=== PATIENT | female | born 1990 | race Caucasian/White ===

== ENCOUNTER 2020-06-27 07:21 | Inpatient (IN) | payer OTHER ==
[~2020-06-27] VITALS: Ht 167.6 cm; Wt 56.7 kg
[2020-06-27] MEDS: SODIUM CHLORIDE 0.9% 1,000 ML IV ONE ×2 (07:30→12:45)
[2020-06-27 09:06] LABS: EOSINOPHILS % 1.8 % (0.0-5.0); HEMATOCRIT. 28.7 % (36.0-48.0); HEMOGLOBIN. 9.8 g/dL (12.0-16.0); LYMPHOCYTES % 18.9 % (20.0-50.0); MEAN CORPUSCULAR HEMOGLOBIN 30.8 pg (28.0-32.0); MEAN CORPUSCULAR VOLUME 90.4 fL (81.0-99.0); MONOCYTES % 6.6 % (2.0-8.0); NEUTROPHILS % 71.7 % (40.0-76.0); PLATELET 178 x1000/uL (130-400); RED BLOOD CELL COUNT 3.17 mill/uL (4.2-5.4); RED CELL DISTRIBUTION WIDTH 11.8 % (11.6-14.6)
[2020-06-27 09:12] LABS: CHLORIDE 111 mEq/L (98-107)
[2020-06-27 14:45] VITALS: BP 104/62
[2020-06-27 16:00] VITALS: BP 104/62
[2020-06-27] MEDS ORDERED: LACTATED RINGERS 1,000 ML IV SCH (16:00)
[2020-06-27] MEDS ORDERED: FENTANYL CITRATE/PF 50MCG/ML 2ML VIAL ONE (16:47)
[2020-06-27] MEDS ORDERED: PROPOFOL 200MG/20ML VIAL IV ONE ×2 (16:47→17:48)
[2020-06-27] MEDS ORDERED: MIDAZOLAM HCL 2 MG/2 ML VIAL ONE ×2 (16:47→17:30)
[2020-06-27] MEDS ORDERED: LIDOCAINE HCL 1% 20ML VIAL (Pyxis) INJ ONE (16:47)
[2020-06-27] MEDS ORDERED: ONDANSETRON HCL 4MG/2ML INJ ONE (17:28)
[2020-06-27] MEDS ORDERED: EPHEDRINE SULFATE 50MG/ML VIAL ONE (17:42)
[2020-06-27] MEDS ORDERED: FENTANYL CITRATE/PF 50MCG/ML 2ML VIAL IV PRN (18:00)
[2020-06-27] MEDS ORDERED: CEPH-569 MT (18:55)
[2020-06-27] MEDS ORDERED: IBUP-2030 MT (18:55)
[2020-06-27 20:00] VITALS: BP 100/61
[2020-06-27 20:10] VITALS: BP 100/61
[2020-06-27 20:26] VITALS: BP 100/61
[2020-06-27] MEDS: IBUPROFEN 800MG TABLET PO NR (20:26)
== END 2020-06-27 21:15 | disposition home or self-care (01) | DRG 769 ==
LOC: ER 07:37 → 6EST 13:31 → ENRESERV 14:03
PROVIDERS: ADMIT Obstetrics & Gynecology; ATTEND Obstetrics & Gynecology
PROC: 10D17ZZ Extraction of Products of Conception, Retained, Via Natural or Artificial Opening (ICD-10-PCS; principal; 2020-06-27)
DX: O72.2 Delayed and secondary postpartum hemorrhage (principal); I95.9 Hypotension, unspecified; R00.0 Tachycardia, unspecified; O90.89 Other complications of the puerperium, not elsewhere classified; Z20.822 Contact with and (suspected) exposure to COVID-19; Z88.0 Allergy status to penicillin
CPT/HCPCS: 36415; 76830; 76856; 80053; 84702; 85025; 86850; 86900; 87426; 88305; 93005; 99285; J2250; J2405; J2704; J3010; J3490; J7030

== ENCOUNTER 2025-04-12 02:05 | Emergency (ER) | payer OTHER ==
[~2025-04-12] VITALS: Ht 170.2 cm; Wt 61.0 kg
[~2025-04-12 02:05] MED LIST: CEPH-569 MT; IBUP-2030 MT
[2025-04-12 02:12] VITALS: O2SAT 98
[2025-04-12] MEDS: SODIUM CHLORIDE 0.9% 1,000 ML IV ONE ×2 (02:43→04:04)
[2025-04-12 03:07] LABS: CREATININE 0.8 mg/dL (0.6-1.0)
[2025-04-12 03:08] LABS: B-HCG QUANTITATIVE 27 mIU/mL (<6); UREA NITROGEN BLOOD 13 mg/dL (9-23)
[2025-04-12 03:09] LABS: ASPARTATE AMINOTRANSFERASE 14 IU/L (<34)
[2025-04-12 03:10] LABS: BILIRUBIN DIRECT 0.1 mg/dL (<=3.0); BILIRUBIN TOTAL 0.4 mg/dL (0.1-1.0); PROTEIN TOTAL 6.1 g/dL (6.0-8.3)
[2025-04-12 03:35] LABS: BASOPHILS % 0.9 % (0.0-2.0); EOSINOPHILS % 3.1 % (0.0-5.0); HEMATOCRIT. 32.0 % (36.0-48.0); HEMOGLOBIN. 10.7 g/dL (12.0-16.0); LYMPHOCYTES % 24.0 % (20.0-50.0); MEAN PLATELET VOLUME 10.1 fl (7.4-10.4); MONOCYTES % 7.9 % (2.0-8.0); NEUTROPHILS % 64.1 % (40.0-76.0); PLATELET 177 x1000/uL (130-400); RED BLOOD CELL COUNT 3.59 mill/uL (4.2-5.4); RED CELL DISTRIBUTION WIDTH 11.7 % (11.6-14.6)
[2025-04-12 03:49] LABS: INR 1.1
[2025-04-12 04:44] LABS: HCG SCREEN INDETERMINATE
[2025-04-12] MEDS: TRANEXAMIC ACID 1,000MG/10ML IV NR (05:05)
[2025-04-12] MEDS ORDERED: ONDANSETRON HCL 4MG/2ML INJ IV ONE (05:15)
[2025-04-12 07:41] VITALS: BP 105/62; PULSE 80; RESP 14; TEMP 37.2; O2SAT 100
== END 2025-04-12 08:22 | disposition short-term general hospital (02) ==
LOC: ER 02:05 → CMPBEDREQ 10:30
DX: N93.8 Other specified abnormal uterine and vaginal bleeding (principal); R55 Syncope and collapse; R57.8 Other shock; D50.0 Iron deficiency anemia secondary to blood loss (chronic); R10.20 Pelvic and perineal pain unspecified side
CPT/HCPCS: 99291; 96374; 86927; 76801; 96361; 80076; 80048; 84703; 84702; 85014; 85018; 85025; 85610; 85730; 86850; 86900; 86901; 86920; 36415; 76817; 93005; J7030; P9016; P9017